=== PATIENT | male | born 2005 | race Caucasian/White ===

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

== ENCOUNTER 2024-08-05 15:25 | Emergency (ER) | payer OTHER, SELFPAY ==
[2024-08-05 15:30] VITALS: BP 116/68; PULSE 79; RESP 18; TEMP 37.4; O2SAT 100
--- NOTE | 2024-08-05 16:16 | ECG_ITS ---
Test Date: 2024-08-05 16:38:00 Measurements Intervals [place] Rate: 73 P: 79 IA: 147 QRS: 90 QRSD: 106 T: 71 QT: 366 QTc: 405 Interpretive Statements NORMAL SINUS RHYTHM RSR' IN V1 OR V2, PROBABLY NORMAL VARIANT OTHERWISE NORMAL ECG No previous ECG available for comparison Electronically Signed On 08-06-2024 10:39:40 CDT by Edgar Mendoza M.D.
--- NOTE | 2024-08-05 16:25 | ED.ANXIETY ---
HPI - Anxiety General Chief Complaint: Anxiety Stated Complaint: anxiety/sinus Source: patient Mode of arrival: ambulatory Limitations: no limitations History of Present Illness HPI narrative: Patient presents for evaluation of anxiety attacks. The course of the last week he has an increase in stress. His car was recently told. He is attempting to balance responsibilities with attending school and working full-time. Reports racing thoughts, periods of where he has chest tightness palpitations indicates he was diagnosed with ADD in the past has a prescription for methylphenidate. Recently medication has made him feel anxious. His mother has noticed that he also feels anxious has been trying to support him. He uses marijuana but denies illicit drugs and smoking. He is also concerned about some sinus congestion and productive cough of green sputum. Related Data Allergies Allergy/AdvReac Type Severity Reaction Status Date / Time amoxicillin Allergy Rash Verified 09/06/21 19:25 Review of Systems Review of Systems: CONSTITUTIONAL: Denies fever, chills, or sweats. EYES: Denies visual changes, redness, or discharge. ENT: Reports sinus congestion. Denies rhinorrhea, sore throat, or otalgia. CARDIOVASCULAR: Reports episodes of chest tightness and palpitations RESPIRATORY: Reports productive cough of green sputum GASTROINTESTINAL: Denies abdominal pain, nausea, vomiting, or diarrhea. GENITOURINARY: Denies dysuria or hematuria. SKIN: Denies rash or itching. MUSCULOSKELETAL: Denies back pain, joint pain, or myalgia. NEUROLOGIC: Denies headache, numbness, dizziness, or weakness. PSYCHIATRIC: Reports anxiety and racing thoughts. Denies depression. [facility] Past Medical History Medical History ADD (attention deficit disorder) Anxiety Surgical History Surgical History No pertinent past surgical history Family History Family History Mother Anxiety Social History Social History (Updated 08/05/24 @ 16:30 by SANNA Grace, ) Smoking status: Never smoker Substance use: current Substance use type: marijuana Living arrangements: with family Occupation/Education: student Gender identity (if verbalized by the patient): Male Spiritual care concerns: No Exam Narrative: GENERAL: Well-appearing, well-nourished, and in no acute distress. HEAD: Normocephalic, atraumatic. EYES: PERRLA and EOMI. ENT: Nares clear, no rhinorrhea or epistaxis. Mucous membranes moist. Oropharynx without tonsillar hypertrophy exudate or other lesions. Bilateral TMs pearly daniels nonbulging NECK: Supple. No adenopathy or masses. No carotid bruits or JVD CHEST: Clear to auscultation. No respiratory distress. No wheezes rales or rhonchi HEART: Regular rate and rhythm. No murmur heard. Normal peripheral pulses. ABDOMEN: Soft, nontender, nondistended, normal active bowel sounds. EXTREMITIES: Normal range of motion. No edema. SKIN: Warm, dry, no rash. NEURO: No focal deficits. Alert and oriented x3. PSYCH: Normal mood and affect. Course Course Emergency Course: This is a 19-year-old male who presented for evaluation of panic attacks. EKG here was normal. Through shared decision making opted to discharge with Vistaril. This may also help some of his upper respiratory symptoms. His exam does not seem consistent with COVID or flu and therefore we agreed to move forward with that testing. He call his primary care provider tomorrow. He was instructed to go to the ER for chest pain or worsening symptoms. Pt and mother in agreement with plan of care. Level of Care: Express Care Visit Vital Signs Vital signs: Vital Signs Temperature 37.4 C 08/05/24 15:30 Pulse Rate 79 08/05/24 15:30 Respiratory Rate 18 08/05/24 15:30 Blood Pressure 11
== END 2024-08-05 16:59 | disposition home or self-care (01) ==
PROVIDERS: Emergency Provider Nurse Practitioner; PCP Physician Assistant
DX: F41.0 Panic disorder [episodic paroxysmal anxiety] (principal); F41.9 Anxiety disorder, unspecified; J06.9 Acute upper respiratory infection, unspecified; F98.8 Other specified behavioral and emotional disorders with onset usually occurring in childhood and adolescence; F12.90 Cannabis use, unspecified, uncomplicated
CPT/HCPCS: 93005; 99213; G0463